=== PATIENT | female | born 1990 | race Caucasian/White ===

== ENCOUNTER 2016-12-27 13:44 | Inpatient (IN) | payer BC ==
[2017-01-01] MEDS ORDERED: RINGERS SOLUTION,LACTATED 300 ML IV ONE (07:40)
[2017-01-01] MEDS ORDERED: RINGERS SOLUTION,LACTATED 1,000 ML IV PRN (07:40)
[2017-01-01] MEDS ORDERED: OXYTOCIN/NORMAL SALINE 1,000 ML IV PRN ×2 (07:40→19:29)
[2017-01-01] MEDS ORDERED: PENICILLIN G-K 5 MILLION UNIT VIAL ONE ×3 (07:55→16:01)
[2017-01-01] MEDS ORDERED: OXYTOCIN/NORMAL SALINE 20 UNIT/1,000 ML RTUINJ ONE ×2 (07:56→17:06)
[2017-01-01] MEDS ORDERED: METOCLOPRAMIDE HCL INJ/PF 10 MG/2 ML SDV ONE (08:14)
[2017-01-01 08:37] LABS: ABSOLUTE LYMPHOCYTES (AUTO) 1.4 10^3/uL (0.5-4.7); ABSOLUTE MONOCYTES (AUTO) 0.7 10^3/uL (0.1-1.4); ABSOLUTE NEUT (AUTO) 5.4 10^3/uL (1.7-8.2); BASOPHILS % (AUTO) 0.6 % (0-2); EOSINOPHILS % (AUTO) 0.5 % (0-6); HEMOGLOBIN 13.5 g/dL (12.0-15.5); HGB HCT DIFFERENCE 1.5; LYMPHOCYTES % (AUTO) 18.8 % (13-45); MEAN CORPUSCULAR HEMOGLOBIN 31.8 pg (27.0-33.4); MEAN CORPUSCULAR HGB CONC 34.7 g/dL (32.0-36.0); MEAN CORPUSCULAR VOLUME 92 fl (80-97); MONOCYTES % (AUTO) 9.1 % (3-13); RED BLOOD COUNT 4.26 10^6/uL (3.72-5.28); RED CELL DISTRIBUTION WIDTH 13.3 % (11.5-14.0); WHITE BLOOD COUNT 7.6 10^3/uL (4.0-10.5)
--- NOTE | 2017-01-01 12:19 | L&D Progress Notes ---
PROGRESS NOTES Datetime Report Generated by CPN: 01/01/2017 12:18 PROGRESS NOTE Impression: Reassuring Heart Rate Plan: Continue Present Management; Cervical Ripening Vital Signs : Reviewed; Within Normal Limits Comment: Back in bed, having UC's but does not feel them, feels pressure at times, Cat 1 strip Family at BS FETUS A FHR - Baseline: 130 Variability: Moderate 6-25bpm Accelerations: 15X15 Decelerations: None : 41.1 Presentation: Vertex SIGNATURE SIGNATURE: [id number] Assignment: Jade Moulton MD Signature: with User ID: [email or web address] : with User ID: [email or web address]
[2017-01-01 14:57] LABS: APPEARANCE,URINE CLEAR; BILIRUBIN,URINE NEGATIVE (NEGATIVE); GLUCOSE, URINE NEGATIVE (NEGATIVE); KETONES,URINE NEGATIVE (NEGATIVE); LEUKOCYTE ESTERASE,URINE LARGE (NEGATIVE); NITRITE,URINE NEGATIVE (NEGATIVE); PROTEIN,URINE NEGATIVE (NEGATIVE); URINE SPECIFIC GRAVITY 1.003; UROBILINOGEN,URINE NEGATIVE mg/dL (<2.0)
[2017-01-01 15:15] LABS: URINE BARBITURATES SCREEN NEGATIVE; URINE METHADONE SCREEN NEGATIVE; URINE OPIATES LOW NEGATIVE; URINE PHENCYCLIDINE SCREEN NEGATIVE
[2017-01-01] MEDS ORDERED: CITRIC ACID/SODIUM CITRATE ORAL SOLN 15 ML UDCUP ONE (16:02)
[2017-01-01] MEDS ORDERED: CEFAZOLIN 2 GM/D5W RTU 2 GM/50 ML RTUPB IV ONE (16:02)
[2017-01-01] MEDS ORDERED: METHYLERGONOVINE MALEATE INJ/PF 0.2 MG/1 ML AMPULE ONE ×2 (16:03→17:06)
--- NOTE | 2017-01-01 16:53 | L&D Progress Notes ---
PROGRESS NOTES Datetime Report Generated by CPN: 01/01/2017 16:53 PROGRESS NOTE Impression: Normal Progression of Labor Procedures: Sterile Vag Exam Plan: Induction Informed Consent Obtained: Section Delivery; Risks, Benefits and Alternatives Discussed Vital Signs : Within Normal Limits Comment: cvx 4cm and probable face presentation. US performed with face presentation verified. Attempt to vert baby to vertex and proper presentation. COnverted to brow and position of bed changed to trendelenberg and attempted position change to proper vertex with peanut ball. However, recheck of positon fetus converted back to face presentation with nose and mouth at cervix. Conent for Primary C/S for face presentation reviewed and pt desires to proceed with Primary CS for malpresentation. FETUS A FHR - Baseline: 130 Monitoring: External US FETUS C SIGNATURE: [id number] Signature: with User ID: [email or web address]
[2017-01-01] MEDS ORDERED: EPHEDRINE SULFATE INJ 50 MG/1 ML AMPULE ONE (17:01)
[2017-01-01] MEDS ORDERED: FENTANYL CITRATE INJ/PF 100 MCG/2 ML AMPUL ONE ×2 (17:02→20:25)
[2017-01-01] MEDS ORDERED: MIDAZOLAM 2 MG/2 ML INJ ONE (17:02)
[2017-01-01] MEDS ORDERED: ONDANSETRON HCL INJ/PF 4 MG/2 ML SDV ONE (17:05)
[2017-01-01] MEDS ORDERED: ACETAMINOPHEN 100 ML IV ONE (17:06)
[2017-01-01] MEDS ORDERED: KETOROLAC TROMETHAMINE INJ/PF 30 MG/1 ML SDV ONE (17:06)
[2017-01-01] MEDS ORDERED: OXYTOCIN 10 UNIT/ML VIAL ONE (17:06)
[2017-01-01] MEDS ORDERED: FENTANYL CITRATE INJ/PF 100 MCG/2 ML AMPUL IV PRN ×3 (17:59)
[2017-01-01] MEDS ORDERED: PROMETHAZINE HCL INJ 25 MG/1 ML VIAL IV PRN ×3 (17:59→19:29)
[2017-01-01] MEDS ORDERED: MORPHINE SULFATE 10 MG/ML INJ IV PRN (17:59)
[2017-01-01] MEDS ORDERED: ONDANSETRON HCL INJ/PF 4 MG/2 ML SDV IV PRN (17:59)
[2017-01-01] MEDS ORDERED: DIPHENHYDRAMINE HCL 50 MG/ML VIAL IV PRN (17:59)
[2017-01-01] MEDS ORDERED: OXYCODONE-ACETAMINOPHEN 5-325 MG TABLET PO PRN ×3 (17:59→19:29)
[2017-01-01] MEDS ORDERED: MEPERIDINE HCL/PF INJ 25 MG/1 ML DISP.SYRIN IV PRN (17:59)
[2017-01-01] MEDS ORDERED: MEPERIDINE HCL/PF INJ 25 MG/1 ML DISP.SYRIN ONE (19:18)
[2017-01-01] MEDS ORDERED: DIPH/PERTUSS(ACELL)/TETANUS VAC/PF 0.5 ML SYR (>=10YO) IM PRN (19:29)
[2017-01-01] MEDS ORDERED: ACETAMINOPHEN 325 MG TABLET PO PRN (19:29)
[2017-01-01] MEDS ORDERED: SIMETHICONE 80 MG TAB.CHEW PO PRN (19:29)
[2017-01-01] MEDS ORDERED: MEASLES,MUMPS&RUBELLA VACC/PF 0.5 ML VIAL SUBCUT PRN (19:29)
[2017-01-01] MEDS ORDERED: HYDROMORPHONE HCL INJ/PF 2 MG/ML AMPULE IV PRN (19:29)
[2017-01-01] MEDS ORDERED: ACETAMINOPHEN 100 ML IV PRN (19:29)
--- NOTE | 2017-01-01 19:35 | Brief Operative Note ---
BRIEF OPERATIVE REPORT DATE OF SURGERY: 01/01/17 TIME OF SURGERY: 18:30 PREOPERATIVE DIAGNOSIS: PUND at 41+1ega, Post DOMINGO IOL, Face presentation POSTOPERATIVE DIAGNOSIS: MOY-delivered SURGEON: LILI WILLIAMSON FINDINGS: VMI delivered from face presentation, Apgars 8/9, weight 8#7oz, Normal tubes/ovaries, UOP 100ml, IVF 1400ml COMPLICATIONS: None ESTIMATED BLOOD LOSS: 650ml TISSUE REMOVED OR ALTERED: placenta and cord - not sent TECHNICAL PROCEDURE: Primary LTCS
[2017-01-01] MEDS ORDERED: OXYCODONE-ACETAMINOPHEN 5-325 MG TABLET ONE (20:26)
--- NOTE | 2017-01-01 21:25 | Admission Physical ---
Datetime Report Generated by CPN: 01/01/2017 21:25 CURRENT ADMISSION Chief Complaint: Scheduled Induction of Labor Indication for Induction: Post Dates Admit Plan: Admit to Unit; Initiate Labor Induction Protocol ALLERGIES Medication Allergies: No Medication Allergies: No Known Allergies (01/01/2017) Medication Allergies: none Latex: No Latex Allergies Food Allergies: none Environmental Allergies: none OBSTETRICAL HISTORY EDC: 12/24/2016 00:00 : 1 Para: 0 Term: 0 : 0 SAB: 0 IAB: 0 Ectopic: 0 Livin Cesareans: 0 VBACs: 0 Multiple Births: 0 Gestational Diabetes: No Rh Sensitization: No Incompetent Cervix: No CHERYL: No Infertility: No ART Treatment: No Uterine Anomaly: No IUGR: No Hx Previous C/S: No Macrosomia: No Hx Loss/Stillborn: No PIH: No Hx : No Placenta Previa/Abruption: No Depression/PP Depression: No PTL/PROM: No Post Hemorrhage: No Current Procedures: Ultrasound; NST Obstetrical History Comments: G1-current (Annotations: Data stored by [facility] on behalf of user) SEE RECORDS Alcohol: No Marijuana : No Cocaine: No Other Illicit Drugs: No Cigarettes: Never Smoker. [id number] MEDICAL HISTORY Diabetes: No Blood Transfusion: No Pulmonary Disease (Asthma, TB): No Breast Disease: No Hypertension: No Load Dispatcher Surgery: No Heart Disease: No Hosp/Surgery: No Autoimmune Disorder: No Anesthetic Complications: No Kidney Disease: No Abnormal Pap Smear: No Neuro/Epilepsy: No Psychiatric Disorders: No Other Medical Diseases: No Hepatitis/Liver Disease: No Significant Family History: No Varicosities/Phlebitis: No Trauma/Violence : No Thyroid Dysfunction: No INFECTIOUS HISTORY Gonorrhea: No Genital Herpes: No Chlamydia: No Tuberculosis: No Syphilis: No Hepatitis: No HIV/AIDS Exposure: No Rash or Viral Illness: No HPV: No PHYSICAL EXAM General: Normal HEENT: Normal Neurologic: Normal Thyroid: Normal Heart: Normal Lungs: Normal Breast: Deferred Back: Normal Abdomen: Normal Genitourinary Exam: Normal Extremities: Normal DTRs: Normal Pelvic Type: Adequate Physical Exam Comments: + GBS RH neg + UTI Vital Signs: Reviewed FETUS A EGA: 41.1 Monitoring: External US FHR- Baseline: 150 Variability: Moderate 6-25bpm Accelerations: 15X15 Decelerations: None Presentation: Vertex Admit Comment: Admitted to L_D for IOL for post dates 41.1 Cat 1 strip POC discussed PLANS FOR LABOR AND DELIVERY Labor and Delivery: None Pain Management: Natural Other Pain Management Plans: Open to epidural if neccessary. Feeding Preference: Breast Benefit of Breast Feed Discussed: Yes Circumcision: Yes INFORMED CONSENT Informed Consent Obtained: Section Delivery; Risks, Benefits and Alternatives Discussed Assignment: Jade Moulton MD Signature: with User ID: [email or web address] : with User ID: [email or web address]
[2017-01-02] MEDS: KETOROLAC TROMETHAMINE INJ/PF 30 MG/1 ML SDV IV SCH ×3 (03:00→18:19)
[2017-01-02 06:19] LABS: HEMATOCRIT 28.4 % (36.0-47.0); HGB HCT DIFFERENCE 1.3; MEAN CORPUSCULAR VOLUME 92 fl (80-97); RED CELL DISTRIBUTION WIDTH 13.2 % (11.5-14.0); WHITE BLOOD COUNT 10.8 10^3/uL (4.0-10.5)
[2017-01-02 06:23] LABS: HEMOGLOBIN 9.9 g/dL (12.0-15.5)
[2017-01-02] MEDS ORDERED: ZOLPIDEM TARTRATE 5 MG TABLET PO PRN (08:24)
[2017-01-02] MEDS ORDERED: RINGERS SOLUTION,LACTATED 500 ML IV ONE (09:00)
[2017-01-02] MEDS: PRENATAL VITAMIN W-O CA NO5/FE FUMARATE/FA CAPSULE PO SCH (09:05)
[2017-01-02] MEDS: DOCUSATE SODIUM 100 MG CAPSULE PO SCH ×2 (09:05→18:19)
[2017-01-02] MEDS: OXYCODONE-ACETAMINOPHEN 5-325 MG TABLET PO PRN ×4 (09:06→22:48)
--- NOTE | 2017-01-02 10:02 | PDOC PROGRESS REPORT ---
Subjective-OB Subjective: Post Delivery Day: 26 year old. Denies any needs at this time Doing well, pain under control, sitting up in chair, voiding, walking in halls, taking diet well, breast feeding Physical Exam (OB) Vital Signs: Temp Pulse Resp BP Pulse Ox 97.7 F 109 H 16 125/77 100 01/02/17 08:17 01/02/17 08:17 01/02/17 08:17 01/02/17 08:17 01/02/17 08:17 Intake & Output 01/01/17 01/02/17 01/03/17 06:59 06:59 06:59 Intake Total 625 Output Total 850 600 Balance -225 -600 Weight 86.65 kg - Dressing Removed: No Incision: Well Approximated Closure Type: Surgical Glue - Lochia Lochia Amount: Small 10-25 ml Lochia Color: Rubra/Red - Abdomen Description: Soft, Round Hernia Present: No Fundal Description: Firm, Midline Fundal Height: u/u - u/2 Objective-Diagnostic Laboratory: 01/02/17 05:44 01/01/17 01/01/17 01/02/17 08:05 08:09 05:44 WBC 10.8 H RBC 3.10 L Hgb 9.9 L D Hct 28.4 L MCV 92 MCH 32.0 MCHC 35.0 RDW 13.2 Plt Count 132 L Urine Color STRAW Urine Appearance CLEAR Urine pH 6.0 Ur Specific [place] 1.003 Urine Protein NEGATIVE Urine Glucose (UA) NEGATIVE Urine Ketones NEGATIVE Urine Blood NEGATIVE Urine Nitrite NEGATIVE Ur Leukocyte Esterase LARGE H Blood Type B NEGATIVE Antibody Screen POSITIVE 01/02/17 05:44 WBC RBC Hgb Hct MCV MCH MCHC RDW Plt Count Urine Color Urine Appearance Urine pH Ur Specific [place] Urine Protein Urine Glucose (UA) Urine Ketones Urine Blood Urine Nitrite Ur Leukocyte Esterase Blood Type B NEGATIVE Antibody Screen Assessment and Plan(PN) - Assessment and Plan (1) Anemia Qualifiers: Anemia type: iron deficiency Is this a current diagnosis for this admission?: Yes (2) Delivery by section of full-term Is this a current diagnosis for this admission?: Yes - Time Spent with Patient Time with patient: Less than 15 minutes Medications reviewed and adjusted accordingly: Yes - Disposition Anticipated Discharge: Home Within: within 48 hours
[2017-01-03] MEDS: IBUPROFEN 800 MG TABLET PO SCH ×3 (00:23→12:06)
[2017-01-03] MEDS: OXYCODONE-ACETAMINOPHEN 5-325 MG TABLET PO PRN (08:08)
[2017-01-03] MEDS: PRENATAL VITAMIN W-O CA NO5/FE FUMARATE/FA CAPSULE PO SCH (10:29)
[2017-01-03] MEDS: DOCUSATE SODIUM 100 MG CAPSULE PO SCH (10:29)
--- NOTE | 2017-01-03 10:31 | PDOC PROGRESS REPORT ---
Subjective-OB Subjective: Post Delivery Day: 26 year old. Denies any needs at this time Doing well, ready to go home. + gas. eating well, feeling good, voiding, hsb and baby at BS Physical Exam (OB) Vital Signs: Temp Pulse Resp BP Pulse Ox 97.7 F 96 16 137/68 H 100 01/03/17 08:34 01/03/17 08:34 01/03/17 08:34 01/03/17 08:34 01/03/17 08:34 Intake & Output 01/02/17 01/03/17 01/04/17 06:59 06:59 06:59 Intake Total 625 300 Output Total 850 600 Balance -225 -300 Weight 86.65 kg - Dressing Removed: No Incision: Well Approximated Closure Type: Surgical Glue - Lochia Lochia Amount: Small 10-25 ml Lochia Color: Rubra/Red - Abdomen Description: Soft, Round Hernia Present: No Fundal Description: Firm, Midline Fundal Height: u/u - u/2 Objective-Diagnostic Laboratory: 01/02/17 05:44 01/02/17 05:44 Blood Type B NEGATIVE Assessment and Plan(PN) - Assessment and Plan (1) Anemia Qualifiers: Anemia type: iron deficiency Is this a current diagnosis for this admission?: Yes (2) Delivery by section of full-term Is this a current diagnosis for this admission?: Yes - Time Spent with Patient Time with patient: Less than 15 minutes Medications reviewed and adjusted accordingly: Yes - Disposition Anticipated Discharge: Home Within: Other - home today
--- NOTE | 2017-01-03 10:34 | PDOC DISCHARGE SUMMARY ---
Final Diagnosis Discharge Date: 01/03/17 - Final Diagnosis (1) Anemia Is this a current diagnosis for this admission?: Yes (2) Delivery by section of full-term Is this a current diagnosis for this admission?: Yes Discharge Data - Discharge Medication Home Medications: Pnv No.95/Ferrous Fum/Folic AC [ Multivitamin Tablet] 1 tab PO DAILY 09/14 Oxycodone HCl/Acetaminophen [Percocet 5-325 mg Tablet] 1 tab PO Q4HP PRN #30 tablet 01/03/17 Gestational Age: 41.1 Reason(s) for Admission: Induction of Labor Procedures: NST, Ultrasound Intrapartum Procedure(s): : Low Cervical, Transverse Intrapartum Procedure Note: face presentation - Data Baby 1 Male Home with Mother: Yes Complications: No - Diagnosis Test Laboratory: Temp Pulse Resp BP Pulse Ox 97.7 F 96 16 137/68 H 100 01/03/17 08:34 01/03/17 08:34 01/03/17 08:34 01/03/17 08:34 01/03/17 08:34 01/01/17 01/01/17 01/02/17 08:05 08:09 05:44 RBC 4.26 3.10 L Hgb 13.5 9.9 L D Hct 39.0 28.4 L Urine Opiates Screen NEGATIVE - Discharge information/Instructions Discharge Activity: Balance Activity w/Rest, No Lifting Over 10 Pounds, No Lifting/Push/Pulling, Pelvic Rest Discharge Diet: As Tolerated, Regular Disposition: HOME, SELF-CARE Follow up with: [facility] in: 1, Weeks
[2017-01-03 11:11] VITALS: BP 119/68
[2017-01-03 11:45] LABS: HEMATOCRIT 25.5 % (36.0-47.0); HEMOGLOBIN 8.7 g/dL (12.0-15.5); HGB HCT DIFFERENCE 0.6; MEAN CORPUSCULAR HEMOGLOBIN 31.7 pg (27.0-33.4); MEAN CORPUSCULAR HGB CONC 34.3 g/dL (32.0-36.0); MEAN CORPUSCULAR VOLUME 92 fl (80-97); RED BLOOD COUNT 2.76 10^6/uL (3.72-5.28); RED CELL DISTRIBUTION WIDTH 13.5 % (11.5-14.0); WHITE BLOOD COUNT 13.1 10^3/uL (4.0-10.5)
--- NOTE | 2017-01-04 11:46 | Delivery Summary ---
Del Sum A-C Datetime Report Generated by CPN: 01/04/2017 11:45 DELIVERY PERSONNEL DELIVERY PERSONNEL: [phone] DELIVERY PERSONNEL: [id number] DELIVERY PERSONNEL: [id number] Delivery Doctor:: Jade Moulton MD Anesthesiologist:: Katharine Carson MD FINANCIAL SERVICES AUDITOR:: Sameer Quintero CRNA Ophthalmic Dispenser:: EDILMA Taylor Nurse Practitioner:: MARLYN Fowler Nursery Nurse:: Kandace Washburn RN Nursery Nurse:: Joseph Neville RN Mixing Machine Operator/RIDING TEACHER: Jennifer Hernandez CST Mixing Machine Operator/RIDING TEACHER: [facility] Additional Personnel: : [facility] MATERNAL INFORMATION Delivery Anesthesia: Spinal Medications After Delivery: Other-Please Comment Meds After Delivery Comment: See Anesthesia Record Estimated Blood Loss (ml): 600 Maternal Complications: None LABOR SUMMARY EDC: 12/24/2016 00:00 No. Babies in Womb: 1 Attempted: No Labor Anesthesia: None LABOR INFORMATION Reason for Induction: Post Dates Onset of Labor: 01/01/2017 16:03 Complete Dilatation: 01/01/2017 16:03 Oxytocin: Induction Group B Beta Strep: Positive Antibiotics # of Doses: 3 Antibiotics Time of Last Dose: 1600 Name of Antibiotic Given: Penicillin Steroids Given: None Reason Steroids Not Administered: Not Applicable MEMBRANES Membranes Rupture Method: Artificial Rupture of Membranes: 01/01/2017 16:03 Length of Rupture (hr): 1.57 Amniotic Fluid Color: Clear Amniotic Fluid Amount: Moderate Amniotic Fluid Odor: Normal STAGES OF LABOR Stage 1 hr: 0 Stage 1 min: 0 Stage 2 hr: 1 Stage 2 min: 34 Stage 3 hr: 0 Stage 3 min: 1 Total Time in Labor hr: 1 Total Time in Labor min: 35 VAGINAL DELIVERY Episiotomy: None Laceration Extension: N/A Laceration Type: None Sponge Count Correct: N/A Sharps Count Correct: N/A CSECTION DELIVERY Primary Indication: Transverse/Complex Presentation Other Primary Indication: Face presentation Secondary Indication: N/A CSection Urgency: Non-Scheduled CSection Incidence: Primary Labor: Labor Elective: Nonelective CSection Incision: Lower Uterine Transverse BABY A INFORMATION Delivery Date/Time: 01/01/2017 17:37 Method of Delivery: Born in Route : No : N/A Forceps: N/A Vacuum Extraction: N/A Shoulder Dystocia : No PRESENTATION/POSITION BABY A Presentation: Cephalic Presentation: Cephalic Cephalic Presentation: Face Vertex Position: n/a Breech Presentation: N/A PLACENTA INFORMATION BABY A Placenta Delivery Time : 01/01/2017 17:38 Placenta Method of Delivery: Manual Removal Placenta Status: Delivered SCORES BABY A Heart Rate 1 min: >100 bpm Resp Effort 1 min: Good Cry Reflex Irritability 1 min: Cough or Sneeze or Pulls Away Muscle Tone 1 min: Active Motion Color 1 min: Blue/Pale Resuscitation Effort 1 min: N/A SCORE 1 MIN: 8 Heart Rate 5 min: >100 bpm Resp Effort 5 min: Good Cry Reflex Irritability 5 min: Cough or Sneeze or Pulls Away Muscle Tone 5 min: Active Motion Color 5 min: Body [place], Extremities Blue Resuscitation Effort 5 min: N/A SCORE 5 MIN: 9 Resuscitation Effort 10 min: N/A INFORMATION BABY A Gestational Age at Delivery: 41.1 Gestational Status: Late Term- 41- 41.6 Weeks Infant Outcome : Liveborn Infant Condition : Stable Sex: Male IDENTIFICATION BABY A Verification Date/Time: 01/01/2017 17:45 ID Band Number: [id number] Mother's Name Verified: Yes Infant RN Verifying Infant: Eugenia Camp RNC Additional Verifying Personnel: T Bobby RIDING TEACHER WEIGHT/LENGTH BABY A Infant Birthweight (gm): 3820 Infant Weight (lb): 8 Weight (oz): 7 Infant Length (in): 20.25 Infant Length (cm): 51.44 CORD INFORMATION BABY A No. Cord Vessels: 3 Nuchal Cord : N/A Cord Blood Taken: Yes-For Eval (Mom's Blood Type - or O+) Suction: Mouth; Nose ASSESSMENT BABY A Infant Complications: Other Complications- Other: face presentation Physical Findings at Delivery: Molding of the Head Physical Findings- Other: brow edema with elongated head noted Respirations: Appears Normal Skin to Skin: Yes Skin to Skin: nursery staff request to bedside with Skin to Skin: Yes Skin to Skin Time (min): 15 Job Service Specialist/ALS Called : No Infant Care By: D Matter MASKING MACHINE FEEDER Transferred To: [place] [facility] BABY B INFORMATION : N/A
== END 2017-01-03 13:45 | disposition home or self-care (01) | DRG 766 ==
LOC: LR 01-01 06:44 → 2N 01-01 20:50
PROVIDERS: ADMIT Student in an Organized Health Care Education/Training Program; ATTEND Student in an Organized Health Care Education/Training Program
PROC: 10D00Z1 Extraction of Products of Conception, Low, Open Approach (ICD-10-PCS; principal; 2017-01-01)
PROC: 3E033VJ Introduction of Other Hormone into Peripheral Vein, Percutaneous Approach (ICD-10-PCS; 2017-01-01)
PROC: 10907ZC Drainage of Amniotic Fluid, Therapeutic from Products of Conception, Via Natural or Artificial Opening (ICD-10-PCS; 2017-01-01)
DX: O32.3XX0 Maternal care for face, brow and chin presentation, not applicable or unspecified (principal); Z37.0 Single live birth; Z3A.41 41 weeks gestation of pregnancy; O48.0 Post-term pregnancy; O99.824 Streptococcus B carrier state complicating childbirth; O99.02 Anemia complicating childbirth; D64.9 Anemia, unspecified
CPT/HCPCS: 1961; 36415; 80307; 81005; 85025; 85027; 85461; 86592; 86850; 86870; 86900; 86901; 90715; 94799; C1765; J0131; J0690; J1170; J1885; J2175; J2210; J2250; J2405; J2540; J2590; J2765; J2790; J3010; J3490